=== PATIENT | male | born 1965 ===

== ENCOUNTER 2021-12-16 06:00 | Day surgery (SDC) | payer OTHER | END 2021-12-16 11:30 | disposition home or self-care (01) | LOC: AMB-ENDOS 06:00 | PROVIDERS: ATTEND Surgery | DX: D12.4 Benign neoplasm of descending colon (principal); K57.30 Diverticulosis of large intestine without perforation or abscess without bleeding; Z20.822 Contact with and (suspected) exposure to COVID-19 ==